=== PATIENT | female | born 1935 | race Caucasian/White ===

== ENCOUNTER 2017-10-07 14:50 | Outpatient (CLI) | payer MEDICARE, OTHER ==
--- NOTE | 2017-10-07 16:11 | RAD ---
EXAM: TWO VIEWS LUMBAR SPINE 10/07/17 HISTORY: Osteoarthritis. COMPARISON: None. FINDINGS: There is leftward curvature of the lumbar spine. Multilevel degenerative disc disease with loss of di sc space height, end plate sclerosis and vacuum disc phenomenon. No obvious vertebral body fracture. IMPRESSION: Degenerative changes in the lumbar spine as defined above. MRI if clinically warranted. POS: LOLA
--- NOTE | 2017-10-07 16:21 | RAD ---
CERVICAL SPINE SERIES THREE VIEWS: History: Arthritis. FINDINGS: Bones are demineralized. There is marked degenerative disc narrowing from the C4-5 through the C7-T1 level with posterior osteophytic changes and marked degenerative facet changes. No soft tissue swelli ng is seen. IMPRESSION: Severe arthritic changes in the spine. POS: LOLA
== END 2017-10-07 14:51 | disposition home or self-care (01) ==
LOC: RAD 14:50
PROVIDERS: ATTEND Family Medicine
DX: M47.892 Other spondylosis, cervical region (principal); M47.896 Other spondylosis, lumbar region
CPT/HCPCS: 72040; 72100

== ENCOUNTER 2019-01-29 17:58 | Emergency (ER) | payer MEDICARE, OTHER ==
[2019-01-29 19:02] LABS: #Eosinphils 0.3 thou/uL (0.0-0.7); #Monocytes 0.3 thou/uL (0.11-0.59); #Neutrophils 3.5 thou/uL (1.40-6.50); %Basophils 0.4 % (0.0-1.0); %Eosinophils 5.8 % (0.0-10.0); %Lymphocytes 19.7 % (21.0-51.0); %Monocytes 5.4 % (0.0-10.0); %Neutrophils 68.6 % (42.0-75.0); Hemoglobin 11.3 g/dL (12.0-16.0); Mean Corpuscular HGB CONC 32.3 g/dL (32.0-36.0); Mean Corpuscular Hemoglobin 33.5 pg (27.0-31.0); Mean Platelet Volume 7.3 fL (7.4-10.4); Platelet Count 168 thou/uL (130-400); RBC Distribution Width 13.5 % (11.5-14.5); Red Blood Cell (RBC) Count 3.39 mill/uL (4.20-5.40); White Blood Cell (WBC) Count 5.1 thou/uL (4.8-10.8)
--- NOTE | 2019-01-29 19:14 | CT ---
CT BRAIN NONCONTRAST: DATE: 01/29/2019 HISTORY: 83-year-old female status post acute head trauma from fall FINDINGS: There is no evidence of acute intra-axial or extra-axial hemorrhage. There is no midline shift or any other mass effect. There is no extra-axial fluid collection. There is no evidence of obstructive hydrocephalus. Calvarium is intact. IMPRESSION: No acute intracranial findings.
[2019-01-29 19:21] LABS: ALT (SGPT) 13 U/L (8-55); AST (SGOT) 18 U/L (5-34); Alkaline Phosphatase 93 U/L (40-150); Anion Gap 12 mmol/L (10-20); BUN (Urea Nitrogen) 23 mg/dL (9.8-20.1); Bilirubin, Total 0.3 mg/dL (0.2-1.2); Calc. Creatinine Clearance 0 mL/min (70-130); Calcium 9.5 mg/dL (7.8-10.44); Carbon Dioxide 25 mmol/L (23-31); Chloride 106 mmol/L (98-107); Estimated GFR-MDRD 54; Globulin 2.3 g/dL (2.4-3.5); Glucose 129 mg/dL (83-110); Potassium 4.2 mmol/L (3.5-5.1); Protein, Total 6.3 g/dL (6.0-8.3); Sodium 139 mmol/L (136-145)
--- NOTE | 2019-01-29 19:33 | RAD ---
CHEST ONE VIEW: 01/29/19 HISTORY: Fall. Pain. COMPARISON: Chest radiograph from 2013. FINDINGS: Elevation of the right hemidiaphragm likely chronic. No pneumothorax. Left axillary surgical clips. T he cardiac silhouette appears normal with mild ectasia of the ascending aorta. IMPRESSION: Mild ascending aortic ectasia. POS: HOME
[2019-01-29 19:57] LABS: Bilirubin Negative (Negative); Blood, Urine Negative (Negative); Clarity CLEAR (Clear); Glucose, Urine (Dipstick) Negative (Negative); Leukocyte Negative (Negative); Nitrite Negative (Negative); Protein, Urine (Dipstick) Negative (Neg-Trace); Specific Gravity, Urine 1.008 (1.002-1.036); Urobilinogen 0.2 mg/dL (0.2-1.0)
--- NOTE | 2019-01-29 20:15 | RAD ---
Radiograph pelvis one view: DATE: 01/29/2019 Time: 7:45 PM HISTORY: 83-year-old female with pelvic pain. FINDINGS: Levoscoliosis of lumbar spine. Multilevel severe degenerative disc disease in lower lumbar spine. No evidence of disruption of the pelvic ring. Diffuse osteopenia. IMPRESSION: 1. Scoliosis and severe degenerative disc disease in lumbar spondylosis. 2. No gross disruption of the pelvic ring identified.
--- NOTE | 2019-01-29 20:16 | RAD ---
Radiograph right hip 2 views: HISTORY: Right hip pain FINDINGS: No displaced fracture. No dislocation. Mild hip joint space narrowing. Tiny subcapital osteophytes. D iffuse osteopenia. IMPRESSION: 1. No displaced fracture. 2. Osteopenia.
== END 2019-01-29 20:43 | disposition home or self-care (01) ==
LOC: ERS 17:58
DX: M79.604 Pain in right leg (principal); R53.1 Weakness; R60.0 Localized edema; E03.9 Hypothyroidism, unspecified; I10 Essential (primary) hypertension; D64.9 Anemia, unspecified; M19.90 Unspecified osteoarthritis, unspecified site; F32.9 Major depressive disorder, single episode, unspecified; F17.220 Nicotine dependence, chewing tobacco, uncomplicated; Z79.899 Other long term (current) drug therapy; W17.89XA Other fall from one level to another, initial encounter
CPT/HCPCS: 70450; 71045; 72170; 80053; 81003; 84484; 85025; 93005; 94760; 96360

== ENCOUNTER 2019-08-25 00:03 | Observation (INO) | payer MEDICARE ==
[2019-08-25 00:50] LABS: #Eosinphils 0.1 thou/uL (0.0-0.7); #Lymphocytes 0.9 thou/uL (1.20-3.40); #Monocytes 0.8 thou/uL (0.11-0.59); #Neutrophils 11.7 thou/uL (1.40-6.50); %Basophils 0.3 % (0.0-1.0); %Eosinophils 0.9 % (0.0-10.0); %Lymphocytes 6.4 % (21.0-51.0); %Monocytes 5.6 % (0.0-10.0); %Neutrophils 86.8 % (42.0-75.0); Hemoglobin 14.2 g/dL (12.0-16.0); Mean Corpuscular HGB CONC 32.8 g/dL (32.0-36.0); Mean Corpuscular Hemoglobin 34.5 pg (27.0-31.0); Mean Platelet Volume 8.5 fL (7.4-10.4); Platelet Count 141 thou/uL (130-400); RBC Distribution Width 12.8 % (11.5-14.5); Red Blood Cell (RBC) Count 4.11 mill/uL (4.20-5.40); White Blood Cell (WBC) Count 13.5 thou/uL (4.8-10.8)
[2019-08-25 01:31] LABS: ALT (SGPT) 12 U/L (8-55); AST (SGOT) 24 U/L (5-34); Albumin 4.4 g/dL (3.4-4.8); Alkaline Phosphatase 221 U/L (40-110); Anion Gap 19 mmol/L (10-20); BUN (Urea Nitrogen) 26 mg/dL (9.8-20.1); Bilirubin, Total 0.5 mg/dL (0.2-1.2); Calc. Creatinine Clearance 0 mL/min (70-130); Calcium 9.6 mg/dL (7.8-10.44); Carbon Dioxide 21 mmol/L (23-31); Chloride 109 mmol/L (98-107); Estimated GFR-MDRD 45; Globulin 2.2 g/dL (2.4-3.5); Glucose 148 mg/dL (83-110); Potassium 4.5 mmol/L (3.5-5.1); Protein, Total 6.6 g/dL (6.0-8.3); Sodium 144 mmol/L (136-145)
[2019-08-25 02:53] LABS: INR-International Normal Ratio 1.1; Prothrombin Time 13.7 SEC (12.0-14.7)
[2019-08-25 02:54] LABS: PTT 20.6 SEC (22.9-36.1)
--- NOTE | 2019-08-25 02:57 | PDOC.FPRHP ---
- History of Present Illness Chief Complaint: Blood per rectum History of Present Illness: Pt is an 84 yo female who presents to the emergency department for blood per rectum. She is a poor historian, not engaged in conversation, but AAO x 3. She is very difficult to understand. Her son brought pt to the emergency department but was not present during interview. Pt states he will be back in the morning. Per emergency department documentation pt had 2 episodes of streaked blood, more stool than blood. She had constipation for 1 week and took a laxative alleviating herself today. She reported chronic pain but not out of proportion. PCP: [facility] ED Course: In the emergency department she was found to have a Hgb of 14.2, positive fecal occult blood. Pt's vitals were WNL other than an elevated blood pressure. Per ED she had hemorroids. - Allergies/Adverse Reactions Allergies Allergy/AdvReac Type Severity Reaction Status Date / Time No Known Allergies Allergy Verified 12/26/16 05:59 - Home Medications Medication Instructions Recorded Confirmed Type Amitriptyline HCl [Elavil] 10 mg PO DAILY 03/31/16 03/31/16 History Aspirin [Children's Aspirin] 81 mg PO DAILY 03/31/16 03/31/16 History DULoxetine [Cymbalta] 60 mg PO DAILY 03/31/16 03/31/16 History Hydrochlorothiazide 25 mg PO DAILY 03/31/16 03/31/16 History Levothyroxine Sodium 112 mcg PO DAILY 03/31/16 03/31/16 History Meloxicam [Mobic] 15 mg PO DAILY 03/31/16 03/31/16 History Omeprazole Magnesium [Prilosec OTC] 40 mg PO DAILY 03/31/16 08/25/19 History Oxybutynin Chloride [Ditropan XL] 10 mg PO DAILY 03/31/16 03/31/16 History traMADol HCl [Tramadol HCl] 50 mg PO QID 03/31/16 08/25/19 History Cyanocobalamin (Vitamin B-12) 1,000 mcg PO DAILY #30 tab 12/26/16 Rx [Vitamin B-12] Folic Acid [Folvite] 1 mg PO DAILY #30 tab 12/26/16 Rx Amlodipine Besylate [amLODIPine 5 mg PO DAILY 08/25/19 08/25/19 History Besylate] Gabapentin 300 mg PO BID 08/25/19 08/25/19 History buPROPion [Wellbutrin] 150 mg PO DAILY 08/25/19 08/25/19 History - History PMHx: unable to obtain PSHx: unable to obtain FHx: unable to obtain Social: unable to obtain - Review of Systems ROS unobtainable: due to mental status General: denies: fever/chills Cardiovascular: denies: chest pain Gastrointestinal: reports: constipation. denies: diarrhea - Vital signs BP: 139/63 HR: 77 RR: 18 Tmax: 97.9 Pox: 94% on RA Wt: 72.5 kg - Physical Exam Constitutional: NAD HEENT: PERRLA, EOMI Neck: FROM, trachea midline Heart: RRR, normal S1/S2 Lungs: CTAB, no respiratory distress Abdomen: soft, bowel sounds present -Abdomen: tender to palpation diffusely; internal hemorroid on exam Heme/Lymphatic: no purpura, no petechia -Psychiatric: difficult to understand, responsive, not engaged in conversation FMR H&P: Results - Labs Result Diagrams: 08/25/19 00:35 08/25/19 00:35 Lab results: WBC 13.5 thou/uL (4.8-10.8) H 08/25/19 00:35 Hgb 14.2 g/dL (12.0-16.0) 08/25/19 00:35 Hct 43.2 % (36.0-47.0) 08/25/19 00:35 MCV 105.0 fL (78.0-98.0) H 08/25/19 00:35 Plt Count 141 thou/uL (130-400) 08/25/19 00:35 Neutrophils % 86.8 % (42.0-75.0) H 08/25/19 00:35 Sodium 144 mmol/L (136-145) 08/25/19 00:35 Potassium 4.5 mmol/L (3.5-5.1) 08/25/19 00:35 Chloride 109 mmol/L (98-107) H 08/25/19 00:35 Carbon Dioxide 21 mmol/L (23-31) L 08/25/19 00:35 BUN 26 mg/dL (9.8-20.1) H 08/25/19 00:35 Creatinine 1.16 mg/dL (0.6-1.1) H 08/25/19 00:35 Glucose 148 mg/dL (83-110) H 08/25/19 00:35 Calcium 9.6 mg/dL (7.8-10.44) 08/25/19 00:35 Total Bilirubin 0.5 mg/dL (0.2-1.2) 08/25/19 00:35 AST 24 U/L (5-34) 08/25/19 00:35 ALT 12 U/L (8-55) 08/25/19 00:35 Alkaline Phosphatase 221 U/L (40-110) H 08/25/19 00:35 Serum Total Protein 6.6 g/dL (6.0-8.3) 08/25/19 00:35 Albumin 4.4 g/dL (3.4-4.8) 08/25/19 00:35 FMR H&P: A/P - Problem List (1) Blood per rectum Current Visit: Yes Status: Acute Code(s): K62.5 - HEMORRHAGE OF ANUS AND RECTUM (2) Internal hemorrhoid Current Visit: Yes Status: Acute Code(s): K64.8 - OTHER HEMORRHOIDS (3) Hypertension Current Visit: Yes Status: Acute Code(s): I10 - ESSENTIAL (PRIMARY) HYPERTENSION - Plan 84 yo here for blood per rectum: # Blood per rectum Hgb 14.2, pt asymptomatic, no falls/LOC. 2 episodes of streaking blood with stool; stool > blood. Son has a picture but was not visualized - son will be at hospital in am. Hx of constipation alleviated today after 1 week. Internal hemorrhoid on exam. Fecal occult positive. Diffuse abdominal pain. - trend h/h - held asa # HTN - continue home meds # FMR H&P: Upper Level - Plan Date/Time: 08/25/19 [id number] INelson MD, have evaluated this patient and agree with findings/plan as outlined by actuarial intern resident. Pertinent changes/additions are listed here. Yesy Medley is an 84 year old F with a PMH of HTN, HLD, Hx of Breast CA s/p mastectomy who presented to the ED after 2 episodes of BRBPR. Brought to ED by son, who she lives with. Son not present for admission team. Pt is a poor historian. Hx provided by CHELSEA. Pt did not have BM over the last week and took laxatives day of admission. Afterwards pt had two BMs that was mostly stool but had streak of red blood. No hx of abnormal bruising or bleeding. Pt denies any abdominal pain. In ED, Vitals were stable, no tachycardia or hypotension. ED AUTOMOTIVE COLLISION ESTIMATOR stated that rectal exam revealed hemorrhoid and FOBT was positive for blood. Labs significant for Hg of 14.2, Hct 43.2. Platelets 141. WBC 13.5. Cr 1.16. INR 1.1, PT 13.7, PTT 20.6. On exam, patient had slight diffuse abdominal pain, worse in LLQ. Rectal exam showed internal hemorrhoid. Otherwise normal exam. Admitting pt to obs medical. Will trend H/H. Likely that rectal bleeding is 2/2 hemorrhoids in the setting of blood streaked stool and hx of constipation. Will direct further management based on repeat H/H. Continue home medications for chronic medical conditions. Anticipate hospital stay < 12 hours and d/c home. Please see actuarial intern note above for full H&P which I have reviewed and agree with.
[2019-08-25 05:39] LABS: #Lymphocytes 0.6 thou/uL (1.20-3.40); #Neutrophils 8.7 thou/uL (1.40-6.50); %Basophils 0.1 % (0.0-1.0); %Eosinophils 0.3 % (0.0-10.0); %Lymphocytes 6.1 % (21.0-51.0); %Monocytes 9.9 % (0.0-10.0); %Neutrophils 83.6 % (42.0-75.0); Hemoglobin 12.6 g/dL (12.0-16.0); Mean Corpuscular HGB CONC 32.2 g/dL (32.0-36.0); Mean Corpuscular Hemoglobin 33.3 pg (27.0-31.0); Mean Platelet Volume 7.8 fL (7.4-10.4); Platelet Count 133 thou/uL (130-400); RBC Distribution Width 12.5 % (11.5-14.5); Red Blood Cell (RBC) Count 3.78 mill/uL (4.20-5.40); White Blood Cell (WBC) Count 10.4 thou/uL (4.8-10.8)
[2019-08-25 06:07] VITALS: BMI 30.9
[2019-08-25] MEDS: Levothyroxine Sodium 112 MCG TAB PO SCH ×2 (06:43→06:52)
[2019-08-25] MEDS ORDERED: Sodium Chloride 0.9% 1,000 ML IV SCH (07:00)
[2019-08-25 08:20] VITALS: BP 126/59; TEMP 98.3
[2019-08-25] MEDS ORDERED: buPROPion 75 MG TAB PO SCH (09:00)
[2019-08-25] MEDS ORDERED: Oxybutynin ER 5 MG TAB PO SCH (09:00)
[2019-08-25] MEDS ORDERED: traMADol HCl 50 MG TAB PO SCH (09:00)
[2019-08-25] MEDS ORDERED: Gabapentin 300 MG CAP PO SCH (09:00)
[2019-08-25] MEDS ORDERED: Amlodipine 5 MG TAB PO SCH (09:00)
[2019-08-26] MEDS ORDERED: FLU VACC TS2019-20(65YR UP)/PF 180 MCG/0.5 ML SYRINGE IM ONE (09:00)
[2019-08-26] MEDS ORDERED: Prevnar 13-Val Conj/PF 0.5 ML SYRINGE IM ONE (09:00)
--- NOTE | 2019-08-26 15:45 | DIS ---
DATE OF ADMISSION: 08/25/2019 DATE OF DISCHARGE: 08/25/2019 ADMITTING ATTENDING: Chuy Nava MD. DISCHARGE ATTENDING: Chuy Nava MD. CONSULTS: None. IMAGING: None. DISCHARGE MEDICATIONS: 1. Tramadol 50 mg p.o. q.i.d. 2. Hydrochlorothiazide 25 mg p.o. daily. 3. Oxybutynin chloride 10 mg p.o. daily. 4. Omeprazole 40 mg p.o. daily. 5. Amitriptyline 10 mg p.o. daily. 6. Cymbalta 60 mg p.o. daily. 7. Meloxicam 15 mg p.o. daily. 8. Levothyroxine 112 mcg p.o. daily. 9. Aspirin 81 mg p.o. daily. 10. Vitamin B12 of 1000 mcg p.o. daily. 11. Folvite 1 mg p.o. daily. 12. Gabapentin 300 mg p.o. daily. 13. Wellbutrin 150 mg p.o. daily. 14. Amlodipine 5 mg p.o. daily. DISCHARGE DIAGNOSES: 1. Internal hemorrhoids. 2. Hypertension. 3. Hyperlipidemia. HISTORY OF PRESENT ILLNESS AND HOSPITAL COURSE: This is an 84-year-old female, who presents to the emergency department for blood per rectum. She is a poor historian, but grandson who is primary caregiver reports that there was blood streaking on one of her stools prior to arrival. In the emergency department, she was hemodynamically stable and remained hemodynamically stable throughout her hospitalization. Digital rectal exam revealed internal hemorrhoid with minimal amount of bright red blood, positive FOBT. Hemoglobin 14.2. Hemoglobin remained stable. The patient was evaluated further in the hospital and determined that the most likely source of her bleeding was internal hemorrhoid, and due to her stable hemoglobin and stable vital signs, she could be appropriately worked up outpatient. DISCHARGE INSTRUCTIONS: Location: Home. Activity: As tolerated. Diet: Heart healthy, low-sodium. FOLLOWUP: Follow up with PCP in the next 5 to 7 days. Job ID: [id number]
== END 2019-08-25 12:20 | disposition home or self-care (01) ==
LOC: ERS 00:03 → SURG A 02:12
PROVIDERS: ADMIT Student in an Organized Health Care Education/Training Program; ATTEND Student in an Organized Health Care Education/Training Program
DX: K64.8 Other hemorrhoids (principal); I10 Essential (primary) hypertension; E78.5 Hyperlipidemia, unspecified; M19.90 Unspecified osteoarthritis, unspecified site; E89.0 Postprocedural hypothyroidism; F32.9 Major depressive disorder, single episode, unspecified; F17.220 Nicotine dependence, chewing tobacco, uncomplicated; Z79.1 Long term (current) use of non-steroidal anti-inflammatories (NSAID); Z79.82 Long term (current) use of aspirin; Z79.899 Other long term (current) drug therapy
CPT/HCPCS: 36415; 80053; 82274; 85025; 85610; 85730; 96360; 96361; 99284; G0378

== ENCOUNTER 2019-09-06 15:53 | Emergency (ER) | payer MEDICARE ==
[2019-09-06] MEDS ORDERED: Lidocaine 1% w/Epinephrine 1:100K 20 ML VIAL ONE (16:41)
[2019-09-06 16:49] LABS: #Basophils 0.1 thou/uL (0.0-0.2); #Eosinphils 0.2 thou/uL (0.0-0.7); #Lymphocytes 1.2 thou/uL (1.20-3.40); #Monocytes 0.5 thou/uL (0.11-0.59); #Neutrophils 4.7 thou/uL (1.40-6.50); %Eosinophils 3.6 % (0.0-10.0); %Lymphocytes 18.3 % (21.0-51.0); %Monocytes 6.8 % (0.0-10.0); %Neutrophils 70.3 % (42.0-75.0); Hemoglobin 11.8 g/dL (12.0-16.0); Mean Corpuscular HGB CONC 32.6 g/dL (32.0-36.0); Mean Corpuscular Hemoglobin 33.6 pg (27.0-31.0); Mean Platelet Volume 7.3 fL (7.4-10.4); Platelet Count 192 thou/uL (130-400); RBC Distribution Width 12.6 % (11.5-14.5); White Blood Cell (WBC) Count 6.7 thou/uL (4.8-10.8)
--- NOTE | 2019-09-06 17:58 | RAD ---
Left lower leg 2 views HISTORY: Leg injury. FINDINGS: Left knee prosthesis without apparent hardware lucency. Tibia and fibula are intact. No acu te fracture, dislocation, or radiopaque foreign bodies. Soft tissue injury at the lateral aspect of the lower leg. IMPRESSION: No acute osseous abnormalities are demonstrated.
[2019-09-06] MEDS ORDERED: Bacitracin 1 PK ONE (18:33)
== END 2019-09-06 17:15 | disposition home or self-care (01) ==
LOC: ERS 15:53
DX: S81.812A Laceration without foreign body, left lower leg, initial encounter (principal); E03.9 Hypothyroidism, unspecified; I10 Essential (primary) hypertension; M19.90 Unspecified osteoarthritis, unspecified site; D64.9 Anemia, unspecified; F32.9 Major depressive disorder, single episode, unspecified; F17.220 Nicotine dependence, chewing tobacco, uncomplicated; Z79.899 Other long term (current) drug therapy; W18.30XA Fall on same level, unspecified, initial encounter
CPT/HCPCS: 12002; 36415; 85025